=== PATIENT | female | born 1965 | race Caucasian/White ===

== ENCOUNTER 2023-02-24 10:27 | Emergency (ER) | payer BC, SELFPAY ==
[2023-02-24 11:00] VITALS: BP 103/74; PULSE 66; RESP 18; TEMP 36.8; O2SAT 98; BMI 26.6
--- NOTE | 2023-02-24 11:33 | ED_ITS ---
HPI - Wound/Laceration General Time Seen by Provider: 11:33 Date Seen: 02/24/23 Chief Complaint: Laceration/Wound Stated Complaint: L hand lac Time Seen by Provider: 02/24/23 11:32 Source: patient and RN notes reviewed Mode of arrival: ambulatory Limitations: no limitations History of Present Illness HPI narrative: Pily is a very pleasant 57-year-old female with up-to-date tetanus in 2019 who comes to the emergency room for lacerations involving her left 3rd and 4th fingers. Last night she was simply washing a glass with a stem that broke. She had just started doing this and the water was clean. The stem unfortunately lacerated the end of her 3rd finger and the middle aspect of her 4th finger. She went to [facility] last night but was told there was going to be a 4 hour wait. They told her that she could go home and follow-up with the [facility] this morning. However, when she called [facility] they did not have any openings and thus they sent her to the emergency room. Related Data Home Medications Medication Instructions Recorded Confirmed levothyroxine 125 mcg tablet 125 mcg PO DAILY 02/24/23 02/24/23 (Levo-T) Allergies Allergy/AdvReac Type Severity Reaction Status Date / Time No Known Drug Allergies Allergy Verified 02/24/23 10:58 Review of Systems Narrative: Able to bend and extend fingers. Denies numbness Const: Denies: fever PFSH PFSH Social History Smoking Status: Never smoker Do you use any of these nicotine containing products: None Second hand tobacco smoke exposure: No How often do you have a drink containing alcohol: 4 or more times a week How many standard drinks containing alcohol do you have on a typical day: 1 or 2 How often do you have six or more drinks on one occasion: Never AUDIT-C Alcohol total score: 4 Non-prescribed substance use: denies use service: No Exam Narrative: Exam Narrative: Alert and oriented. Very pleasant well-spoken woman in no acute distress. Examination of the volar aspect of patient's fingers shows a 1 cm laceration compromising epidermis dermis on the middle phalanx volar surface. Patient has full sensation distally. She is able to flex extend at the PIP and DI P. This is more of a flap in somewhat irregular. This area was cleansed examine explored there do not appear to be any foreign bodies noted. Tentatively I did use glue on the distal proximal and mid aspect. I did not make this wound care tight given the fact that this is greater than 15 hours since injury. On the distal phalanx volar surface patient has sustained a 1.4 cm laceration. At this time it compromises epidermis and dermis and subcutaneous tissue. I do explore the wounds do not note any foreign bodies after has been cleansed. 4 sutures were placed in interrupted fashion of 5 0 nylon with good wound closure. Patient tolerated procedure very well. Const: Vital Signs, click to edit/add: Vital Signs - 24 hr 02/24/23 11:00 Temperature 98.3 F Pulse Rate [Pulse Oximeter] 66 Respiratory Rate 18 Blood Pressure [Le ft Upper Arm] 103/74 Pulse Oximetry 98 Oxygen Delivery Me thod Room Air Course Vital Signs Vital signs: Initial Vital Signs Temperature 98.3 F 02/24/23 11:00 Temperature Source Temporal Artery Scan 02/24/23 11:00 Pulse Rate 66 02/24/23 11:00 Pulse Rhythm Regular 02/24/23 11:00 Respiratory Rate 18 02/24/23 11:00 Blood Pressure 103/74 02/24/23 11:00 Blood Pressure Mean 83 02/24/23 11:00 Blood Pressure Position Supine 02/24/23 11:00 Pulse Oximetry 98 02/24/23 11:00 Oxygen Delivery Method Room Air 02/24/23 11:00 Vital Signs Temperature 98.3 F 02/24/23 11:00 Pulse Rate 66 02/24/23 11:00 Respiratory Rate 18 02/24/23 11:00 Blood Pressure 103/74 02/24/23 11:00 Pulse Oximetry 98 02/24/23 11:00 Oxygen Delivery Method Room Air 02/24/23 11:00 Temperature 98.3 F 02/24/23 11:00 Pulse Rate 66 02/24/23 11:00 Respiratory Rate 18 02/24/23 11:00 Blood Pressure 103/74 02/24/23 11:00 Pulse Oximetry 98 02/24/23 11:00 Oxygen Delivery Method Room Air 02/24/23 11:00 MDM - Wound/Laceration MDM Narrative Medical decision making narrative: 1. Lacerations secondary to glass-patient noted to have injuries to left 3rd and 4th volar surface of the fingers secondary to a broken stem on a glass. This wound occurred greater than 15 hours ago and thus of course I was very concerned regarding increased risk of infection. Patient does tell me that this was clean water and that overnight she did bandage this area with Neosporin. She does understand there is an increase risk. On the 4th finger I did modify my usual gluing and did leave area is open so that this may drain should an infection developed. On there is ecchymosis at this site but there is no evidence of erythema or drainage. On the 3rd finger given the fact that this does compromise some underlying subcutaneous tissue and the wound is gaping I did feel that we would need to place sutures. Four sutures were placed in such a fashion that there was good wound approximation but this would still allow any drainage so there should there be an underlying infection. Patient tolerated procedure very well. At this time will continue to monitor. Should patient have redness develops, fever, drainage she will need to be seen as she may need an antibiotic. Wound was not contaminated and patient has continued to keep it clean at this point however patient does realize that she is at increased risk of infection. Ibuprofen or Tylenol as needed for discomfort. Suture removal in 10 days time. 2. Disposition-home at this time. Return as needed. Discharge Plan Discharge Clinical Impression: Laceration Patient Disposition: Home, Self-Care Condition: Improved Additional Instructions: Keep clean and dry. You may shower and pat this area dry or wash your hands and Pap this area dry but please do not soak your hand such as when your doing dishes or in a bathtub her swimming. Suture removal in 10 days time. Monitor for infection-increasing redness, drainage, swelling or fever should not be ignored. Follow-up with your clinic should these occur. You may need antibiotics. Prescriptions: No Action levothyroxine [Levo-T] 125 mcg tablet 125 mcg PO DAILY Follow Up/Referrals: Cassandra Marion MD [Primary Care Provider] - Stand Alone Forms: [employer] Info Instructions
[2023-02-24] MEDS: LIDOCAINE/EPINEP/TETRACAINE 3 ML GEL..ML. TOPICAL (11:38)
--- NOTE | 2023-02-24 12:30 | ED.NURSE ---
Wound irrigated with 500mL of sterile saline, okay with MD. Pt tolerated well. MD notified Pt is ready for lac repair.
[2023-02-24 13:15] VITALS: BP 103/74; PULSE 66; RESP 18; TEMP 36.8
--- NOTE | 2023-02-24 13:15 | ED.NURSE ---
1303-Dermabond on L 3rd finger by . Lac repair by on L 2nd finger. Bacitracin, dressing applied by EDT. Pt tolerated well. Extra dressing supplies provided to Pt.
== END 2023-02-24 13:03 | disposition home or self-care (01) ==
PROVIDERS: Emergency Provider Family Medicine; PCP Family Medicine
DX: S61.213A Laceration without foreign body of left middle finger without damage to nail, initial encounter (principal); S61.215A Laceration without foreign body of left ring finger without damage to nail, initial encounter; W25.XXXA Contact with sharp glass, initial encounter; Y92.010 Kitchen of single-family (private) house as the place of occurrence of the external cause
CPT/HCPCS: 12001; 99283